=== PATIENT | female | born 1995 | race African-American/Black ===

== ENCOUNTER 2023-12-31 15:06 | Emergency (ER) | payer MEDICAID ==
[~2023-12-31] VITALS: Ht 170.2 cm; Wt 85.0 kg
[2023-12-31 15:08] VITALS: BP 127/70; PULSE 96; RESP 18; TEMP 98.2; O2SAT 100
[2023-12-31] MEDS ORDERED: KETOROLAC 60MG/2ML VIAL IM ONE (15:15)
[2023-12-31] MEDS ORDERED: HYDROCODONE/ACETAMINOPHEN 10/325MG TABLET PO ONE (15:15)
== END 2023-12-31 17:17 | disposition home or self-care (01) ==
LOC: ER 15:06
DX: R51.9 Headache, unspecified (principal); K08.89 Other specified disorders of teeth and supporting structures
CPT/HCPCS: 99283